=== PATIENT | male | born 1970 | race Hispanic/Latino ===

== ENCOUNTER 2018-06-21 07:08 | Outpatient (CLI) | payer BC ==
--- NOTE | 2018-06-21 17:01 | ULT ---
SONOGRAM RIGHT UPPER QUADRANT: Date: 06/21/18 HISTORY: Right upper quadrant pain. FINDINGS: Gallbladder has a normal appearance without evidence of stones. Common duct is 0.7 cm. Liver is diffu sely echogenic without focal mass or intrahepatic biliary dilatation. No free fluid. IMPRESSION: 1. No sonographic evidence of gallstones or acute biliary obstruction. 2. Hepatosteatosis. POS: [facility]
== END 2018-06-21 07:09 | disposition home or self-care (01) ==
LOC: NAV ULT 07:08
PROVIDERS: ATTEND Nurse Practitioner Family
DX: R10.11 Right upper quadrant pain (principal); K76.0 Fatty (change of) liver, not elsewhere classified
CPT/HCPCS: 76705